=== PATIENT | male | born 1980 | race Caucasian/White ===

== ENCOUNTER 2023-05-30 13:16 | Emergency (ER) | payer OTHER, SELFPAY ==
[2023-05-30] VITALS (14 sets, daily range): BP systolic 117–149; BP diastolic 72–88; PULSE 69–97; RESP 13–18; TEMP 36.2–36.7; O2SAT 95–100
--- NOTE | ~2023-05-30 | CT_ITS ---
EXAMINATION: CT abdomen pelvis w con DATE: 05/30/2023 19:55 INDICATION: epigastric pain TECHNIQUE: Computed tomography (CT) of the abdomen and pelvis was performed with 100 mL Omnipaque-350 intravenous contrast. Automated exposure control and iterative reconstruction technique were employe d. The dose-length product was 350.73 mGy-cm. COMPARISON: None. FINDINGS: Lower thorax: Unremarkable Liver: Normal. Biliary/Gallbladder: Gallbladder is normal. No bile duct dilation. Pancreas: No mass or duct dilation. Spleen: Normal. Adrenals:No mass. Kidneys: No suspicious mass, obstructing stone, or hydronephrosis. GI tract: Mild distal esophageal and gastric wall edema. Small hiatal hernia. No small or large bowel dilation. Normal appendix. Diverticulosis without diverticulitis. Mesentery/Peritoneum: No ascites, mass, or free air. Retroperitoneum: No mass. Pelvis: Pelvic organs are within normal limits. Soft Tissues: Large but otherwise uncomplicated appearing fat-containing bilateral inguinal hernias. Small uncomplicated fat-containing umbilical hernia. Bones: No acute osseous finding. IMPRESSION: Mild esophagitis/gastritis. Otherwise, no acute abdominopelvic process detected. Reviewed, dictated and finalized at location K. [employer] DEVELOPER
--- NOTE | 2023-05-30 13:34 | ECG_ITS ---
Measurements Intervals [place] Rate: 67 P: 40 MI: 171 QRS: 80 QRSD: 97 T: 53 QT: 367 QTc: 388 Interpretive Statements SINUS RHYTHM NORMAL ELECTROCARDIOGRAM NO PREVIOUS ECG AVAILABLE FOR COMPARISON Electronically Signed On 05-30-2023 19:16:51 [facility] by Ludin Espinoza M.D.
--- NOTE | 2023-05-30 18:52 | ED.GENADULT ---
HPI - General Adult General Chief complaint: Unspecified Stated complaint: heartburn/sob Time Seen by Provider: 05/30/23 18:21 History of Present Illness HPI narrative: 42-year-old male presents to the emergency department for evaluation of intermittent epigastric pain. Patient states often when he eats he does have increased abdominal bloating and some shortness of breath. Patient had previously been started on pantoprazole and states that this did help but that this is no longer helping his symptoms. Patient reports he has had seen 3 physicians for this but has not had follow-up with GI. Related Data Allergies Allergy/AdvReac Type Severity Reaction Status Date / Time No Known Allergies Allergy Verified 05/30/23 13:33 Review of Systems Review of Systems: All systems reviewed & are unremarkable except as noted in HPI and below Exam Narrative: APPEARANCE: Well appearing, no pain, no distress, well-nourished. HEAD: normocephalic, atraumatic. EYES: PERRLA/EOMI, conjunctivae clear. NOSE: Normal no drainage EARS:TMS clear with good light reflex. THROAT: Pharynx clear, no exudate. NECK: Supple. No adenopathy, no masses. RESPIRATORY: Airway patent, respirations nonlabored. Clear to auscultation bilaterally, no rales, rhonchi, wheezing. CARDIOVASCULAR: Regular rate and rhythm without murmurs rubs or gallops. ABDOMINAL: Soft, nontender, nondistended, normal bowel sounds MUSCULOSKELETAL: Moves all extremities. Strength/ROM intact, No edema, No calf tenderness. NEURO: Alert. Cranial nerves II through XII intact. Grossly intact SKIN: Warm, dry. Normal Color Course Course Emergency Course: 42-year-old male presents to the emergency department for evaluation of epigastric fullness. Patient had no significant lab abnormalities. CT scan did show evidence esophagitis and gastritis. Patient was updated on the plan for treatment and importance of close follow-up with GI. All questions concerns were addressed and patient was well-appearing at time of discharge. Vital Signs Vital signs: Vital Signs Temperature 97.2 F L 05/30/23 13:29 Pulse Rate 69 05/30/23 13:29 Respiratory Rate 18 05/30/23 13:29 Blood Pressure 132/75 05/30/23 13:29 Pulse Oximetry 99 05/30/23 13:29 Oxygen Delivery Room Air 05/30/23 13:29 Temperature 98.0 F 05/30/23 18:56 Pulse Rate 88 05/30/23 21:26 Respiratory Rate 16 05/30/23 21:26 Blood Pressure 134/83 05/30/23 21:26 Pulse Oximetry 98 05/30/23 21:26 Oxygen Delivery Room Air 05/30/23 13:29 Medical Decision Making Differential Diagnosis Differential Diagnosis: Esophagitis, gastritis, pancreatitis, colitis Vital Signs Vital Signs: Vital Signs Temperature 97.2 F L 05/30/23 13:29 Pulse Rate 69 05/30/23 13:29 Respiratory Rate 18 05/30/23 13:29 Blood Pressure 132/75 05/30/23 13:29 Pulse Oximetry 99 05/30/23 13:29 Oxygen Delivery Room Air 05/30/23 13:29 Temperature 98.0 F 05/30/23 18:56 Pulse Rate 88 05/30/23 21:26 Respiratory Rate 16 05/30/23 21:26 Blood Pressure 134/83 05/30/23 21:26 Pulse Oximetry 98 05/30/23 21:26 Oxygen Delivery Room Air 05/30/23 13:29 Lab Data Lab results reviewed: Yes I reviewed the patient's lab results. 05/30/23 18:55 05/30/23 18:55 Labs: Lab Results 05/30/23 Range/Units 18:55 WBC 6.5 (4.5-10.0) K/mm3 RBC 5.36 (4.6-6.20) M/mm3 Hgb 14.9 (14.0-18.0) g/dL Hct 45.0 (42.0-52.0) % MCV 84.0 (80-100) fl MCH 27.8 (26-34) pg MCHC 33.1 (32-36) g/dl RDW 12.3 (11.5-14.5) % Plt Count 242 (150-375) k/mm3 MPV 9.1 (7.4-10.4) fl Immature Gran % (Auto) 0.2 (0-0.5) % Neut % (Auto) 48.5 (45.5-73.1) % Lymph % (Auto) 39.6 (18.3-44.2) % [place] % (Auto) 6.0 (2.6-8.5) % Eos % (Auto) 4.6 H (0-4.4) % Baso % (Auto) 1.1 (0.2-1.2) % Lymph # (Auto) 2.58 (0.9-3.2) K/mm3 [place] # (Auto) 0.4 (0.1-0.6) K/mm3 Eos # (A
[2023-05-30] MEDS: SODIUM CHLORIDE 0.9% IV 1,000 ML 999 ML IV CONT (18:57)
[2023-05-30 19:06] LABS: Basophils Absolute Auto 0.1 K/mm3 (0.0-0.1); Basophils Percent Auto 1.1 % (0.2-1.2); Eosinophils Absolute Auto 0.3 K/mm3 (0-0.3); Eosinophils Percent Auto 4.6 % (0-4.4); Hemoglobin 14.9 g/dL (14.0-18.0); Immature Granulocyte Absolute 0.01 K/mm3 (0.00-0.031); Immature Granulocyte Percent A 0.2 % (0-0.5); Lymphocytes Absolute Auto 2.58 K/mm3 (0.9-3.2); Lymphocytes Percent Auto 39.6 % (18.3-44.2); Mean Corpuscular HGB Conc 33.1 g/dl (32-36); Mean Corpuscular Hemoglobin 27.8 pg (26-34); Mean Platelet Volume 9.1 fl (7.4-10.4); Monocytes Absolute Auto 0.4 K/mm3 (0.1-0.6); Neutrophils Absolute Auto 3.2 K/mm3 (1.3-6.7); Neutrophils Percent Auto 48.5 % (45.5-73.1); Platelet Count Result 242 k/mm3 (150-375); Red Blood Count 5.36 M/mm3 (4.6-6.20); Red Cell Distribution Width 12.3 % (11.5-14.5); White Blood Count 6.5 K/mm3 (4.5-10.0)
--- NOTE | 2023-05-30 19:13 | PC.NURSE ---
this rn assumed care of patient. this rn took patient report from lisandro Rubio.
--- NOTE | 2023-05-30 19:18 | PC.NURSE ---
this rn took patient report from HUNTER Rubio. this rn assumed care of patient.
[2023-05-30 19:22] LABS: Lactic Acid Reflex 0.9 mmol/L (0.7-2.0)
[2023-05-30 19:23] LABS: Alanine Aminotransferase 22 U/L (6-50); Albumin Level 4.4 g/dL (3.5-5.1); Alkaline Phosphatase 68 U/L (38-126); Anion Gap 8 mmol/L (8-16); Aspartate Amino Transferase 28 U/L (17-59); Bilirubin,Total 0.6 mg/dL (0.2-1.3); Blood Urea Nitrogen 18 mg/dL (9-20); Calcium 9.2 mg/dL (8.4-10.2); Carbon Dioxide 29 mmol/L (22-30); Chloride 102 mmol/L (98-107); Estimated CRCL calculation 86 ml/min; Estimated Glomerular Filt Rate > 60; Glucose 93 mg/dL (65-110); Lipase 86 U/L (23-300); Potassium 4.1 mmol/L (3.4-5.0); Sodium 139 mmol/L (137-145)
== END 2023-05-30 21:27 | disposition home or self-care (01) ==
PROVIDERS: Emergency Provider Emergency Medicine
DX: R10.13 Epigastric pain (principal); K29.70 Gastritis, unspecified, without bleeding; K20.90 Esophagitis, unspecified without bleeding
CPT/HCPCS: 36415; 74177; 80053; 83605; 83690; 85025; 93005; 96360; 99284; J7030; Q9967